=== PATIENT | female | born 1950 | race Two or more races ===

== ENCOUNTER 2018-01-02 11:10 | Outpatient (CLI) | payer OTHER | END 2018-01-02 11:28 | disposition home or self-care (01) | LOC: MAMO-SONO 11:10 → RAD 11:10 → NUCLEAR 11:15 → RAD 11:28 | DX: Z12.31 Encounter for screening mammogram for malignant neoplasm of breast (principal); Z87.898 Personal history of other specified conditions; N63.10 Unspecified lump in the right breast, unspecified quadrant; N63.20 Unspecified lump in the left breast, unspecified quadrant; M54.2 Cervicalgia; M54.6 Pain in thoracic spine; N63.21 Unspecified lump in the left breast, upper outer quadrant ==

== ENCOUNTER 2018-01-02 15:21 | Outpatient (CLI) | payer OTHER | END 2018-01-02 16:00 | disposition home or self-care (01) | LOC: NUCLEAR 15:21 → EDBD 15:21 → NUCLEAR 16:00 | DX: I25.10 Atherosclerotic heart disease of native coronary artery without angina pectoris (principal); I13.0 Hypertensive heart and chronic kidney disease with heart failure and stage 1 through stage 4 chronic kidney disease, or unspecified chronic kidney disease; I73.9 Peripheral vascular disease, unspecified; Z13.820 Encounter for screening for osteoporosis; M81.0 Age-related osteoporosis without current pathological fracture ==

== ENCOUNTER → 2018-05-08 | Outpatient (CLI) | payer OTHER | END | disposition home or self-care (01) | LOC: NUCLEAR 05-05 09:00 | DX: I77.89 Other specified disorders of arteries and arterioles (principal); I67.89 Other cerebrovascular disease ==